=== PATIENT | male | born 1990 | race Caucasian/White ===

== ENCOUNTER 2020-08-23 09:22 | Emergency (ER) | payer MEDICAID, SELFPAY ==
[2020-08-23 09:30] VITALS: BP 135/91; PULSE 73; RESP 17; TEMP 36.8; O2SAT 99; BMI 35.9
--- NOTE | 2020-08-23 09:49 | HMH.EDUTC ---
[facility] [place] Disposition Clinical Impression: Exposure to COVID-19 virus Disposition: Home, Self-Care Condition on Discharge: Good Instructions: Preventing the Spread of Coronavirus Discharge Instructions Additional Instructions: *Monitor Temp, Over the counter Motrin or Tylenol as directed/as needed Tylenol every 4 hours and Motrin every 6 hours (as long as your family doctor has told you that you can take it) for fever or pain. and straight to ER if unable to lower temp less than 101.0 after medication given *Warm salt water gargles may help to soothe the throat *Throat Lozenges *Warm fluids like tea with honey may help to soothe the throat *Sleep elevated *Humidifier/Vaporizer Follow up IMMEDIATELY for new or worsening symptoms or no Noticeable improvement over the next 48-72 hours. 911 for difficulty breathing or swallowing You was tested for today for COVID19 your test result should be back in the next 24-48 hours, you may call to the [facility] tomorrow to see if your test results are back however could take up to 48 hours before results are back [phone] [facility] hours are 9am-9pm You was given a handout with instructions for Self Quarantine and Self isolation for while you wait on test results and what to do if they are positive If you are positive the Health Dept will be contacting you also Referrals: Ava Urias [Primary Care Provider] - Forms: Work/School Release Time of Disposition: 09:52 Medical Decision Making - Arnold Inquiry Pt receiving controlled substance: No Arnold was queried for this patient: No Vital Signs: 08/23/20 09:30 Temperature 98.2 F Temperature Source Oral Pulse Rate [Right Brachial] 73 Respiratory Rate 17 Blood Pressure [Right Arm] 135/91 H Blood Pressure Mean [Right Arm] 105 Blood Pressure Source [Right Arm] Automatic Cuff Blood Pressure Position [Right Arm] Sitting 02 Sat by Pulse Oximetry 99 Oxygen Delivery Method Room Air Orders (Tests/Meds): ORDERS Category Date Time Status Covid-19 Nasal PCR Sendout [facility] 08/23/20 09:30 Ordered [facility] [place] HPI - General Stated complaint: Covid exposure Time Seen by Provider: 08/23/20 09:49 Mode of Arrival: Ambulatory Source of Information: Patient Limitations: No Limitations Description of Symptoms (Recalled from Triage Doc. by RN): PATIENT EXPOSED TO COVID LAST WEEK. C/O LOSS OF SMELL/TASTE, BODY ACHES, NAUSEA, AND FATIGUE X 2 DAYS HEENT Symptoms (Recalled from RN notes): Yes Resp Symptoms (Recalled from RN notes): No Skin Symptoms (Recalled from RN notes): No MS Symptoms (Recalled from RN notes): Yes Functional Status (Recalled from RN notes): WNL - History of Present Illness Provider Complaint: Patient states that he was exposed to coworker last week that recently tested positive for COVID States that he has since started having body aches, chills, headache and loss his sense of taste and smell States that he is concerned that he may have COVID - Related Data Home Medications Medication Instructions Recorded Confirmed Atorvastatin Calcium [Lipitor 40mg 40 mg PO HS 08/23/20 08/23/20 Tab] Allergies Allergy/AdvReac Type Severity Reaction Status Date / Time loratadine [From CLARITIN] Allergy Mild ALLERGY Verified 08/22/18 14:46 WORSE venom-honey bee Allergy Mild Verified 08/22/18 14:46 [bee venom (honey bee)] azithromycin Allergy Verified 08/22/18 15:08 Bumble Bee Allergy Mild Uncoded 09/09/17 14:48 - Worker's Comp Is this a Worker's Comp case?: No [facility] History - Hepatitis A Screen Drug use history?: No High risk sexual behaviors?: No History of sexually transmitted infection?: No Currently employed?: No Childcare worker?: No Do you have indoor plumbing?: Yes Do you have electricity?: Yes Attestation statement:: This patient has been screened for Hepatitis A risk factors. I have reviewed the patient's past medical history: Yes Other Medical History: Reports: Other (radha
[2020-08-23 09:57] VITALS: BP 135/91; PULSE 73; RESP 17; TEMP 36.8; O2SAT 99
[2020-08-24 09:45] LABS: Covid-19 Nasal PCR Sendout Lex NOT DETECTED
== END 2020-08-23 10:00 | disposition home or self-care (01) ==
PROVIDERS: Emergency Provider Nurse Practitioner; PCP Nurse Practitioner Family
DX: Z20.828 Contact with and (suspected) exposure to other viral communicable diseases (principal); E78.5 Hyperlipidemia, unspecified; Z79.899 Other long term (current) drug therapy
CPT/HCPCS: 99201; U0004

== ENCOUNTER 2021-02-03 12:59 | Emergency (ER) | payer MEDICAID, SELFPAY ==
[2021-02-03 13:26] VITALS: BP 146/81; PULSE 84; RESP 20; TEMP 36.6; O2SAT 100; BMI 31.8
--- NOTE | 2021-02-03 13:57 | HMH.EDUTC ---
[facility] [place] Disposition Clinical Impression: Sinusitis Qualifiers: Sinusitis location: unspecified location Chronicity: unspecified Qualified Code(s): J32.9 - Chronic sinusitis, unspecified Disposition: Home, Self-Care Condition on Discharge: Good Instructions: Sinusitis, DI for Sinusitis, Sinus Headache Additional Instructions: *Monitor Temp, Over the counter Motrin or Tylenol as directed/as needed Tylenol every 4 hours and Motrin every 6 hours (as long as your family doctor has told you that you can take it) for fever or pain. and straight to ER if unable to lower temp less than 101.0 after medication given *Warm fluids like tea with honey may help to soothe the throat and help with nasal congestion *Sleep elevated *Humidifier/Vaporizer Take medication as prescribed *Flonase 2 sprays in each nostril daily but be aware that it may take 2-3 days before you notice improvement Follow up IMMEDIATELY for new or worsening symptoms or no Noticeable improvement over the next 48-72 hours. 911 for difficulty breathing or swallowing Prescriptions: Amoxicillin/Potassium Clav [Augmentin 875-125 Tablet] 1 tab PO Q12H 10 Days #20 tab Transmission Status: Pending to [facility] Fluticasone Propionate [Flonase 50mcg nasal spray 16gm] 1 spr NS DAILY #1 bottle Transmission Status: Pending to [facility] methylPREDNISolone [Medrol 4mg tab] 4 mg PO DIRECTED #21 tab Transmission Status: Pending to [facility] Referrals: Ava Urias [Primary Care Provider] - As needed Time of Disposition: 14:02 Medical Decision Making - Arnold Inquiry Pt receiving controlled substance: No Arnold was queried for this patient: No Vital Signs: 02/03/21 13:26 Temperature 97.8 F Temperature Source Oral Pulse Rate [Left] 84 Respiratory Rate 20 Blood Pressure [Right Arm] 146/81 H Blood Pressure Mean [Right Arm] 102 02 Sat by Pulse Oximetry 100 [facility] [place] HPI - General Stated complaint: allergy symptoms Time Seen by Provider: 02/03/21 13:57 Mode of Arrival: Ambulatory Source of Information: Patient Limitations: No Limitations Description of Symptoms (Recalled from Triage Doc. by RN): pt is having a stuffy nose and sinus pressure. pt thinks its allergies or possible a sinus infection HEENT Symptoms (Recalled from RN notes): Yes (sinus pressure and nasal drainage) Resp Symptoms (Recalled from RN notes): No Skin Symptoms (Recalled from RN notes): No MS Symptoms (Recalled from RN notes): No Functional Status (Recalled from RN notes): na - History of Present Illness Provider Complaint: Patient states that he has been having problems with his allergies for over a month now States that for the last week he has been having sinus pain and pressure and feeling like it is worse States that he also noticed his drainage from his nose went from clear to yellowish green and feeling pressure behind his eyes so he came in to get it checked - Related Data Home Medications Medication Instructions Recorded Confirmed Atorvastatin Calcium [Lipitor 40mg 40 mg PO HS 08/23/20 08/23/20 Tab] Previous Rx's Medication Instructions Recorded Amoxicillin/Potassium Clav 1 tab PO Q12H 10 Days #20 tab 02/03/21 [Augmentin 875-125 Tablet] Fluticasone Propionate [Flonase 1 spr NS DAILY #1 bottle 02/03/21 50mcg nasal spray 16gm] methylPREDNISolone [Medrol 4mg 4 mg PO DIRECTED #21 tab 02/03/21 tab] Allergies Allergy/AdvReac Type Severity Reaction Status Date / Time loratadine [From CLARITIN] Allergy Mild ALLERGY Verified 02/03/21 13:29 WORSE venom-honey bee Allergy Mild Verified 02/03/21 13:29 [bee venom (honey bee)] azithromycin Allergy Verified 02/03/21 13:29 Bumble Bee Allergy Mild Uncoded 09/09/17 14:48 - Worker's Comp Is this a Worker's Comp case?: No [facility] History - Hepatitis A Screen Drug use history?: No High risk sexual behaviors?: No History of sexually transmitted infection
[2021-02-03 14:04] VITALS: BP 139/85; PULSE 87; RESP 19; TEMP 36.6
== END 2021-02-03 14:06 | disposition home or self-care (01) ==
PROVIDERS: Emergency Provider Nurse Practitioner; PCP Nurse Practitioner Family
DX: J32.9 Chronic sinusitis, unspecified (principal)
CPT/HCPCS: 99202; G0463

== ENCOUNTER 2021-02-08 18:53 | Emergency (ER) | payer MEDICAID, SELFPAY ==
[2021-02-08 19:00] VITALS: BP 137/84; PULSE 67; RESP 16; TEMP 36.6; O2SAT 99; BMI 33.2
--- NOTE | 2021-02-08 19:33 | HMH.EDUTC ---
[facility] [place] Disposition Clinical Impression: Poison alyssa Disposition: Home, Self-Care Condition on Discharge: Good Instructions: DI for Poison Alyssa Allergy Additional Instructions: Over the counter Calamine Lotion to area may help to dry the rash Over the counter Benadryl may help with itching Return if needed Avoid poison alyssa if possible To help prevent poison alyssa rash do not take hot shower after working in the weeds and make sure to immediately throw clothes in the laundry Follow up with your Family Doctor if no improvement or any worsening of symptoms Referrals: Ava Urias [Primary Care Provider] - As needed Time of Disposition: 20:20 Medical Decision Making - Arnold Inquiry Pt receiving controlled substance: No Arnold was queried for this patient: No Vital Signs: 02/08/21 19:00 02/08/21 20:12 Temperature 97.9 F 97.9 F Temperature Source Oral Pulse Rate 67 Pulse Rate [Right Brachial] 67 Respiratory Rate 16 16 Blood Pressure 137/84 Blood Pressure [Right Arm] 137/84 Blood Pressure Mean [Right Arm] 101 Blood Pressure Source [Right Arm] Automatic Cuff Blood Pressure Position [Right Arm] Sitting 02 Sat by Pulse Oximetry 99 Oxygen Delivery Method Room Air Orders (Tests/Meds): ED MEDICATIONS Discontinued Medications Generic Name Dose Route Start Last Admin Trade Name Freq PRN Reason Stop Dose Admin Methylprednisolone Sodium Succinate 125 mg 02/08/21 19:45 02/08/21 20:00 Methylprednisolone Sod Succ 125mg Vial IM 02/08/21 19:46 125 mg ONCE ONE Administration [facility] [place] HPI - General Stated complaint: rash on arm Time Seen by Provider: 02/08/21 19:25 Mode of Arrival: Ambulatory Source of Information: Patient Limitations: No Limitations Description of Symptoms (Recalled from Triage Doc. by RN): PATIENT C/O POISON ALYSSA TO LEFT ARM HEENT Symptoms (Recalled from RN notes): No Resp Symptoms (Recalled from RN notes): No Skin Symptoms (Recalled from RN notes): Yes MS Symptoms (Recalled from RN notes): No Functional Status (Recalled from RN notes): WNL - History of Present Illness Provider Complaint: Patient states that he is allergic to Poison alyssa and he cut down a tree a couple days ago and he noticed he was starting to break out in rash on his left arm States that he is itching his arm and now concerned because he has had it close to his eyes in the past - Related Data Allergies Allergy/AdvReac Type Severity Reaction Status Date / Time loratadine [From CLARITIN] Allergy Mild ALLERGY Verified 02/03/21 13:29 WORSE venom-honey bee Allergy Mild Verified 02/03/21 13:29 [bee venom (honey bee)] azithromycin Allergy Verified 02/03/21 13:29 Bumble Bee Allergy Mild Uncoded 09/09/17 14:48 - Worker's Comp Is this a Worker's Comp case?: No [facility] History - Hepatitis A Screen Drug use history?: No High risk sexual behaviors?: No History of sexually transmitted infection?: No Currently employed?: No Childcare worker?: No Do you have indoor plumbing?: Yes Do you have electricity?: Yes Attestation statement:: This patient has been screened for Hepatitis A risk factors. I have reviewed the patient's past medical history: Yes Other Medical History: Reports: Other (seasonal allergies) Laterality Cases: Bilateral: Tonsillectomy - Social History Smoking Status: Never smoker Alcohol Intake: never Occupational Status: other Housing: house Family Hx:: Hypertension, Diabetes, Heart Attack Comment: anxiety ROS Obtained: Yes All systems reviewed & no additional complaints, Yes Systems reviewed as appropriate & no additional complaints - Constitutional Constitutional: Reports system reviewed and no additional complaints, except as docu - ENT Ears, Nose, Mouth, and Throat: Reports system reviewed and no additional complaints, except as docu - Cardiovascular Cardiovascular: Reports system reviewed and no additional complaints, except as docu - Respiratory Respiratory: R
[2021-02-08 20:12] VITALS: BP 137/84; PULSE 67; RESP 16; TEMP 36.6; O2SAT 99
== END 2021-02-08 20:20 | disposition home or self-care (01) ==
PROVIDERS: Emergency Provider Nurse Practitioner; PCP Nurse Practitioner Family
DX: L23.7 Allergic contact dermatitis due to plants, except food (principal)
CPT/HCPCS: 96372; 99202; G0463

== ENCOUNTER 2021-04-28 19:13 | Emergency (ER) | payer MEDICAID, SELFPAY ==
[2021-04-28 19:14] VITALS: BP 127/74; PULSE 71; RESP 21; TEMP 37.1; O2SAT 98; BMI 31.5
--- NOTE | 2021-04-28 19:39 | HMH.EDUTC ---
[facility] [place] Clinical Impression: Sinusitis Qualifiers: Sinusitis location: maxillary Chronicity: acute Recurrence: non-recurrent Qualified Code(s): J01.00 - Acute maxillary sinusitis, unspecified Disposition: Home, Self-Care Condition on Discharge: Good Instructions: DI for Sinusitis Additional Instructions: You have been tested for COVID19. Your results should be available tomorrow. Prescriptions: Amoxicillin [Amoxicillin 875MG Tab] 875 mg PO Q12H #20 tab Transmission Status: Pending to [facility] Referrals: Ava Urias [Primary Care Provider] - Time of Disposition: 19:45 Medical Decision Making - Arnold Inquiry Pt receiving controlled substance: No Vital Signs: 04/28/21 19:14 Temperature 98.7 F Temperature Source Oral Pulse Rate [Left Radial] 71 Respiratory Rate 21 Blood Pressure [Right Arm] 127/74 Blood Pressure Mean [Right Arm] 91 02 Sat by Pulse Oximetry 98 Oxygen Delivery Method Room Air [facility] [place] HPI - General Stated complaint: sinus infection Time Seen by Provider: 04/28/21 19:39 Mode of Arrival: Ambulatory Source of Information: Patient Limitations: No Limitations Description of Symptoms (Recalled from Triage Doc. by RN): c/o sinus drainage and yellow mucus for 2 days HEENT Symptoms (Recalled from RN notes): Yes Resp Symptoms (Recalled from RN notes): No Skin Symptoms (Recalled from RN notes): No MS Symptoms (Recalled from RN notes): No Functional Status (Recalled from RN notes): wnl - History of Present Illness Provider Complaint: Sinus congestion, yellow mucous X 2 days. No fever. Denies ear pain, sore throat, cough. No vomiting or diarrhea. No known exposure to COVID19. Onset (ago): day(s) (2) Relieving factors: none Exacerbating factors: none Associated symptoms: denies other symptoms Treatments prior to arrival: none - Related Data Previous Rx's Medication Instructions Recorded Amoxicillin [Amoxicillin 875MG 875 mg PO Q12H #20 tab 04/28/21 Tab] Allergies Allergy/AdvReac Type Severity Reaction Status Date / Time loratadine [From CLARITIN] Allergy Mild ALLERGY Verified 02/03/21 13:29 WORSE venom-honey bee Allergy Mild Verified 02/03/21 13:29 [bee venom (honey bee)] azithromycin Allergy Verified 02/03/21 13:29 Bumble Bee Allergy Mild Uncoded 09/09/17 14:48 - Worker's Comp Is this a Worker's Comp case?: No H History - Hepatitis A Screen Drug use history?: No High risk sexual behaviors?: No History of sexually transmitted infection?: No Currently employed?: No Childcare worker?: No Do you have indoor plumbing?: Yes Do you have electricity?: Yes Attestation statement:: This patient has been screened for Hepatitis A risk factors. I have reviewed the patient's past medical history: Yes Other Medical History: Reports: Other (seasonal allergies) Laterality Cases: Bilateral: Tonsillectomy - Social History Smoking Status: Never smoker Alcohol Intake: never Occupational Status: other Housing: house Family Hx:: Hypertension, Diabetes, Heart Attack Comment: anxiety ROS Obtained: Yes All systems reviewed & no additional complaints - Constitutional Constitutional: Reports headache(s), Reports malaise - ENT Ears, Nose, Mouth, and Throat: Reports sinus pain, Reports sinus pressure Physical Exam - General General appearance: alert, in no apparent distress - Head Head exam: normocephalic - Eye Eye exam: Present: PERRL - ENT ENT exam: Present: TM's normal bilaterally - Expanded ENT Exam Nose exam: Present: sinus tenderness Throat exam: Present: tonsillar erythema, tonsillomegaly - Neck Neck exam: Absent: lymphadenopathy - Chest Chest inspection: Present: normal inspection - Respiratory Respiratory exam: Present: normal lung sounds bilaterally - Cardiovascular Cardiovascular exam: Present: regular rate, normal rhythm - Neurological Exam Neurological exam: Present: alert, oriented X3 - P
[2021-04-28 19:58] VITALS: BP 127/74; PULSE 71; RESP 21; TEMP 37.1; O2SAT 98
== END 2021-04-28 19:58 | disposition home or self-care (01) ==
PROVIDERS: Emergency Provider Physician Assistant; PCP Nurse Practitioner Family
DX: J01.00 Acute maxillary sinusitis, unspecified (principal); Z20.822 Contact with and (suspected) exposure to COVID-19
CPT/HCPCS: 99202; G0463; U0003

== ENCOUNTER 2021-10-21 18:25 | Emergency (ER) | payer MEDICAID, SELFPAY ==
[2021-10-21 19:14] VITALS: BP 137/78; PULSE 81; RESP 16; TEMP 37.4; O2SAT 99; BMI 34.8
--- NOTE | 2021-10-21 19:30 | HMH.EDUTC ---
[facility] [place] Disposition Clinical Impression: Exposure to COVID-19 virus, Viral syndrome Disposition: Home, Self-Care Condition on Discharge: Good Instructions: Preventing the Spread of Coronavirus Discharge Instructions, DI for COVID-19 (Suspected or Confirmed ), DI for Viral Syndrome Additional Instructions: Drink plenty of fluids. Take tylenol or ibuprofen for pain or fever. Take the medications as directed. Follow up with your regular doctor. GO TO THE ER FOR ANY WORSENING SYMPTOMS Throw your tooth brush away and get a new one. Quarantine until you know the results of your covid-19 test. Notify your school or workplace of your results and follow their instructions regarding return to work/school. Don't start the oral steroids or the antibiotics unless you feel like you are getting a sinus infection. Prescriptions: Brompheniramine/Pseudoephed/Dm [Bromfed Dm Cough Syrup] 5 ml PO Q6HP PRN #240 ml PRN Reason: Cough [facility]: [facility] Amoxicillin/Potassium Clav [Augmentin 875-125 Tablet] 1 tab PO Q12H 10 Days #20 tab Transmission Status: [facility] methylPREDNISolone [Medrol] 4 mg PO DIRECTED 6 Days #21 packet [facility] Referrals: Ava Urias [Primary Care Provider] - Time of Disposition: 19:39 Medical Decision Making - Medical Records Medical records reviewed: No: I reviewed the patient's medical records. - Arnold Inquiry Pt receiving controlled substance: No Vital Signs: 10/21/21 19:14 Temperature 99.4 F Temperature Source Oral Pulse Rate [Left] 81 Respiratory Rate 16 Blood Pressure [Right Arm] 137/78 Blood Pressure Mean [Right Arm] 97 02 Sat by Pulse Oximetry 99 Orders (Tests/Meds): ORDERS Category Date Time Status Covid-19 Nasal PCR ([facility]) Routine Lab 10/21/21 19:07 Received [facility] [place] HPI - General Stated complaint: covid test/treated for symptoms Time Seen by Provider: 10/21/21 19:30 Mode of Arrival: Ambulatory Source of Information: Patient Limitations: No Limitations Description of Symptoms (Recalled from Triage Doc. by RN): pt c/o a RIVERA, body aches and chills. pt exposed to covid positive girlfriend. HEENT Symptoms (Recalled from RN notes): Yes (RIVERA) Resp Symptoms (Recalled from RN notes): No Skin Symptoms (Recalled from RN notes): No MS Symptoms (Recalled from RN notes): No Functional Status (Recalled from RN notes): wnl - History of Present Illness Provider Complaint: He states that his currently has covid-19. For the past 1 day he has felt kind of bad and had a headache. He denies any chest congestion or cough. He gets sinus infections frequently, so he is worried that he may be getting one. - Related Data Previous Rx's Medication Instructions Recorded Amoxicillin [Amoxicillin 875MG 875 mg PO Q12H #20 tab 04/28/21 Tab] Amoxicillin/Potassium Clav 1 tab PO Q12H 10 Days #20 tab 10/21/21 [Augmentin 875-125 Tablet] Brompheniramine/Pseudoephed/Dm 5 ml PO Q6HP PRN #240 ml 10/21/21 [Bromfed Dm Cough Syrup] methylPREDNISolone [Medrol] 4 mg PO DIRECTED 6 Days #21 10/21/21 packet Allergies Allergy/AdvReac Type Severity Reaction Status Date / Time loratadine [From CLARITIN] Allergy Mild ALLERGY Verified 02/03/21 13:29 WORSE venom-honey bee Allergy Mild Verified 02/03/21 13:29 [bee venom (honey bee)] azithromycin Allergy Verified 02/03/21 13:29 Bumble Bee Allergy Mild Uncoded 09/09/17 14:48 - Worker's Comp Is this a Worker's Comp case?: No [facility] History - Hepatitis A Screen Drug use history?: No High risk sexual behaviors?: No History of sexually transmitted infection?: No Currently employed?: No Childcare worker?: No Do you have indoor plumbing?: Yes Do you have electricity?: Yes Attestation statement:: This patient has been screened for Hepatitis A risk factors. I have reviewed the patient's past medical
[2021-10-21 19:46] VITALS: BP 137/78; PULSE 81; RESP 16; TEMP 37.4
== END 2021-10-21 19:46 | disposition home or self-care (01) ==
PROVIDERS: Emergency Provider Nurse Practitioner Family; PCP Nurse Practitioner Family
DX: U07.1 COVID-19 (principal); R51.9 Headache, unspecified
CPT/HCPCS: 99202; C9803; G0463; U0003; U0005

== ENCOUNTER 2022-02-13 18:38 | Emergency (ER) | payer MEDICAID, SELFPAY ==
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
[2022-02-13 18:59] VITALS: BP 144/81; PULSE 82; RESP 19; TEMP 36.5; O2SAT 99; BMI 34.7
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
[2022-02-13 19:30] VITALS: BP 144/81; PULSE 82; RESP 19; TEMP 36.5
== END 2022-02-13 19:39 | disposition home or self-care (01) ==
PROVIDERS: Emergency Provider Nurse Practitioner Family; PCP Nurse Practitioner Family
DX: S67.01XA Crushing injury of right thumb, initial encounter (principal); W22.8XXA Striking against or struck by other objects, initial encounter
CPT/HCPCS: 73130; 99212; G0463

== ENCOUNTER 2022-09-02 15:09 | Emergency (ER) | payer MEDICAID, OTHER, SELFPAY ==
--- NOTE | 2022-09-02 17:09 | EXP.UTC ---
Discharge Plan Disposition Patient Disposition: Home, Self-Care Condition: Good Prescriptions Prescriptions: New tptrnodewxyyjot-phcpajvab-VV [Bromfed DM] 2-30-10 mg/5 mL Syrup 5 ml PO Q6H PRN (Reason: Cough) Qty: 240 0RF amoxicillin [amoxicillin] 500 mg tablet 500 mg PO TID 10 Days Qty: 30 0RF methylprednisolone 4 mg Tablets,Dose Pack 4 mg PO DIRECTED Qty: 21 0RF oseltamivir [Tamiflu] 75 mg capsule 75 mg PO BID Qty: 10 0RF No Action amoxicillin 875 MG tablet 875 mg PO Q12H Qty: 20 0RF ibuprofen 800 MG tablet 800 mg PO Q8HP PRN (Reason: Moderate Pain) Qty: 30 0RF cephalexin 500 MG capsule 500 mg PO Q6H 10 Days Qty: 40 0RF methylprednisolone 4 MG tablets,dose pack 4 mg PO DIRECTED 6 Days Qty: 21 0RF amoxicillin-pot clavulanate 1 EACH tablet 1 tab PO Q12H 10 Days Qty: 20 0RF gbllvdswaoguakk-mwylvabis-IB 118 ML syrup 5 ml PO Q6HP PRN (Reason: Cough) Qty: 240 0RF Referrals Follow up/Referrals: Ava Urias [Primary Care Provider] - See instructions Activity Restrictions/Add. Instructions Additional Instructions/Restrictions: Drink plenty of fluids. Take tylenol or ibuprofen for pain or fever. Take the medications as directed. Follow up with your regular doctor. GO TO THE ER FOR ANY WORSENING SYMPTOMS Clinical Impressions Clinical Impression: Acute viral syndrome Stand Alone Forms Stand Alone Forms: Work/School Release Instructions Patient Instructions: DI for Influenza -- Adult, Oseltamivir Discharge ED Provider: Wing Brown [facility] General Stated complaint: h/a, body aches, chills Time Seen by Provider: 09/02/22 17:09 History of Present Illness Provider Complaint: He states that since early this morning he has had body aches, chills, scratchy sore throat, and a cough. He has body aches also. Related Data Previous Rx's Medication Instructions Recorded amoxicillin 875 mg tablet 875 mg PO Q12H #20 tabs 04/28/21 amoxicillin 875 mg-potassium 1 tab PO Q12H 10 days #20 tabs 10/21/21 clavulanate 125 mg tablet hxpwsaxqvgqngea-lkfejxrjygvrhci-KI 5 ml PO Q6HP PRN Cough #240 mL 10/21/21 2 mg-30 mg-10 mg/5 mL oral syrup methylprednisolone 4 mg tablets in 4 mg PO DIRECTED 6 days #21 10/21/21 a dose pack packets cephalexin 500 mg capsule 500 mg PO Q6H 10 days #40 caps 02/13/22 ibuprofen 800 mg tablet 800 mg PO Q8HP PRN Moderate Pain 02/13/22 #30 tabs amoxicillin 500 mg tablet 500 mg PO TID 10 days #30 tabs 09/02/22 iearseviekkwjfw-lhdjldrvqfzgfrs-YL 5 ml PO Q6H PRN Cough #240 mL 09/02/22 2 mg-30 mg-10 mg/5 mL oral syrup (Bromfed DM) methylprednisolone 4 mg tablets in 4 mg PO DIRECTED #21 tabs 09/02/22 a dose pack oseltamivir 75 mg capsule (Tamiflu) 75 mg PO BID #10 caps 09/02/22 Allergies Allergy/AdvReac Type Severity Reaction Status Date / Time loratadine [From CLARITIN] Allergy Mild ALLERGY Verified 09/02/22 17:27 WORSE venom-honey bee Allergy Mild Verified 09/02/22 17:27 [bee venom (honey bee)] azithromycin Allergy Verified 09/02/22 17:27 Bumble Bee Allergy Mild Uncoded 09/09/17 14:48 [facility] Disclaimer: The information contained in this section may have been updated after the patient was seen, as this information can be updated by other users. Social History Smoking Status: Never smoker second hand exposure: No alcohol intake: never current occupational status: other Travel in the last 8 weeks: None housing: house ROS Obtained: Yes All systems reviewed & no additional complaints except as documented Constitutional Constitutional: Reports chills and Reports fever(s) Eyes Eyes: Denies eye discharge ENT Ears, Nose, Mouth, and Throat: Reports as per HPI Cardiovascular Cardiovascular: Denies chest pain Respiratory Respiratory: Denies chest congestion and Reports cough Gastrointestinal Gastrointestingal: Reports na
[2022-09-02 17:22] VITALS: BP 155/93; PULSE 74; RESP 16; TEMP 36.9; O2SAT 98; BMI 32.9
[2022-09-02 17:27] LABS: Coronavirus 19, PCR Not Detected (NotDetected); Influenza A, PCR Not Detected (NotDetected); Influenza B, PCR Not Detected (NotDetected)
[2022-09-02 17:28] LABS: UTC Strep Screen (Rapid) Negative (Negative)
[2022-09-02 18:05] VITALS: BP 155/93; PULSE 74; RESP 16; TEMP 36.9
== END 2022-09-02 18:08 | disposition home or self-care (01) ==
PROVIDERS: Emergency Provider Nurse Practitioner Family; PCP Nurse Practitioner Family
DX: R51.9 Headache, unspecified (principal); R50.9 Fever, unspecified; R52 Pain, unspecified; B34.9 Viral infection, unspecified
CPT/HCPCS: 87880; 99212; C9803; G0463; U0003; U0005

== ENCOUNTER 2022-10-10 18:43 | Emergency (ER) | payer MEDICAID, SELFPAY ==
[2022-10-10 18:55] VITALS: BP 140/72; PULSE 56; RESP 17; O2SAT 99; BMI 33.5
--- NOTE | 2022-10-10 19:05 | EXP.UTC ---
Discharge Plan Disposition Patient Disposition: Home, Self-Care Condition: Good Prescriptions Prescriptions: New bacitracin-polymyxin B 500-10,000 unit/gram ointment 1 applic ophthalmic (eye) Q3H 7 Days Qty: 3.5 0RF ibuprofen [IBU] 800 mg tablet 800 mg PO Q8HP PRN (Reason: Moderate Pain) Qty: 30 0RF Referrals Follow up/Referrals: Ava Urias [Primary Care Provider] - See instructions Activity Restrictions/Add. Instructions Additional Instructions/Restrictions: Use the eye ointment as directed. Follow up with your regular doctor. You need to have your primary care provider to check your eyes again in 24 to 48 hours. GO TO THE ER FOR ANY WORSENING SYMPTOMS OR CONCERNS Clinical Impressions Clinical Impression: Photokeratitis Stand Alone Forms Stand Alone Forms: Work/School Release Instructions Patient Instructions: DI for Eye Flash Burn Discharge ED Provider: Wing Brown [facility] General Stated complaint: AO 10/09 welding adames both eyes Mode of Arrival: Ambulatory Limitations: No Limitations Time Seen by Provider: 10/10/22 19:05 Description of Symptoms (Recalled from Triage Doc. 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 REPORTS PAIN IS BETTER BUT BOTTOM EYE LIDS FEEL SWOLLEN History of Present Illness Provider Complaint: He states that he welded last night without eye protection. He has had bilateral eye irritation and burning since after doing that. He denies any possible foreign body. His tetanus immunization is up to date. Related Data Previous Rx's Medication Instructions Recorded bacitracin-polymyxin B 500 1 applic ophthalmic (eye) Q3H 7 10/10/22 unit-10,000 unit/gram eye ointment days #3.5 grams ibuprofen 800 mg tablet (IBU) 800 mg PO Q8HP PRN Moderate Pain 10/10/22 #30 tabs Allergies Allergy/AdvReac Type Severity Reaction Status Date / Time loratadine [From CLARITIN] Allergy Mild ALLERGY Verified 10/10/22 19:22 WORSE venom-honey bee Allergy Mild Verified 10/10/22 19:22 [bee venom (honey bee)] azithromycin Allergy Verified 10/10/22 19:22 Bumble Bee Allergy Mild Uncoded 09/09/17 14:48 [facility] Disclaimer: The information contained in this section may have been updated after the patient was seen, as this information can be updated by other users. Social History Smoking Status: Never smoker second hand exposure: No alcohol intake: never current occupational status: other Travel in the last 8 weeks: None housing: house ROS Obtained: Yes All systems reviewed & no additional complaints except as documented Constitutional Constitutional: Denies chills and Denies fever(s) Eyes Eyes: Reports as per HPI, Denies change in vision, Denies diplopia, Reports eye discharge, Denies dry eyes, Denies floaters, Reports irritation, Denies itchy eyes, Denies loss of peripheral vision, Denies loss of vision, Reports sensitivity to light and Reports photophobia ENT Ears, Nose, Mouth, and Throat: Denies dizziness, Denies otalgia and Denies sore throat Cardiovascular Cardiovascular: Denies chest pain Respiratory Respiratory: Denies shortness of breath, Denies chest congestion, Denies cough, Denies stridor and Denies wheezing Gastrointestinal Gastrointestingal: Denies nausea or vomiting Musculoskeletal Musculoskeletal: Reports system reviewed and no additional complaints, except as documented and Denies arthralgias Integumentary/Breasts Skin/Breast: Denies rash Neurologic Neurologic: Denies dizziness, Denies loss of vision and Denies paresthesias Allergic/Immunologic Allergic/Immunologic: Denies itchy eyes and Denies wheezing Physical Exam General General appearance: alert and in no apparent distress Head Head exam: atraumatic, normocephalic and normal inspection Eye Eye exam: Present PERRL and EOMI Expanded Eye Exam Eyelids: bilateral: erythema Pupils: Left: siz
[2022-10-10 19:10] VITALS: BP 116/74; PULSE 58; RESP 20; TEMP 36.6; O2SAT 98; BMI 32.3
[2022-10-10 20:12] VITALS: BP 116/74; PULSE 58; RESP 20; TEMP 36.6; O2SAT 98
== END 2022-10-10 20:12 | disposition home or self-care (01) ==
PROVIDERS: Emergency Provider Nurse Practitioner Family; PCP Nurse Practitioner Family
DX: H16.133 Photokeratitis, bilateral (principal); W89.0XXA Exposure to welding light (arc), initial encounter
CPT/HCPCS: 99212; 99213; G0463

== ENCOUNTER 2022-10-18 19:09 | Emergency (ER) | payer MEDICAID, SELFPAY ==
[2022-10-18 19:10] VITALS: BP 143/95; PULSE 80; RESP 20; TEMP 37.3; O2SAT 97; BMI 33.9
[2022-10-18 19:27] LABS: UTC Strep Screen (Rapid) Negative (Negative)
--- NOTE | 2022-10-18 19:28 | EXP.UTC ---
Discharge Plan Disposition Patient Disposition: Home, Self-Care Condition: Good Prescriptions Prescriptions: New prednisone [prednisone] 20 mg tablet 20 mg PO BID 5 Days Qty: 10 0RF pseudoephedrine HCl [12 Hour Decongestant] 120 mg Tablet Extended Release 120 mg PO Q12H Qty: 20 0RF amoxicillin-pot clavulanate 875-125 mg Tablet 1 tab PO Q12H Qty: 20 0RF Referrals Follow up/Referrals: Ava Urias [Primary Care Provider] - See instructions Activity Restrictions/Add. Instructions Additional Instructions/Restrictions: Take all meds as prescribed until gone Clinical Impressions Clinical Impression: Bilateral otitis media Instructions Patient Instructions: DI for Otitis Media (Middle Ear Infection)-Child Discharge ED Provider: Shauna Ramirez [facility] General Stated complaint: bilateral ear pain, sore throat, low grade fever Mode of Arrival: Ambulatory Source of Information: Patient Limitations: No Limitations Time Seen by Provider: 10/18/22 19:29 Description of Symptoms (Recalled from Triage Doc. by RN): sore throat, ear ache bilateral. HEENT Symptoms (Recalled from RN notes): Yes Resp Symptoms (Recalled from RN notes): No Skin Symptoms (Recalled from RN notes): No MS Symptoms (Recalled from RN notes): No Functional Status (Recalled from RN notes): n/a History of Present Illness Provider Complaint: Bilateral ear pain, sore throat, low-grade fever X 1 day. No vomiting or diarrhea. Related Data Previous Rx's Medication Instructions Recorded amoxicillin 875 mg-potassium 1 tab PO Q12H #20 tabs 10/18/22 clavulanate 125 mg tablet prednisone 20 mg tablet 20 mg PO BID 5 days #10 tabs 10/18/22 pseudoephedrine HCl 120 mg 120 mg PO Q12H #20 tabs 10/18/22 tablet,extended release (12 Hour Decongestant ER) Allergies Allergy/AdvReac Type Severity Reaction Status Date / Time loratadine [From CLARITIN] Allergy Mild ALLERGY Verified 10/18/22 19:25 WORSE venom-honey bee Allergy Mild Verified 10/18/22 19:25 [bee venom (honey bee)] azithromycin Allergy Verified 10/18/22 19:25 Bumble Bee Allergy Mild Uncoded 09/09/17 14:48 Worker's Comp Is this a Worker's Comp case?: No [facility] Disclaimer: The information contained in this section may have been updated after the patient was seen, as this information can be updated by other users. Social History Smoking Status: Never smoker second hand exposure: No alcohol intake: never current occupational status: other Travel in the last 8 weeks: None housing: house ROS Obtained: Yes All systems reviewed & no additional complaints except as documented ENT Ears, Nose, Mouth, and Throat: Reports otalgia and Reports sore throat Physical Exam General General appearance: alert and in no apparent distress Head Head exam: atraumatic, normocephalic and normal inspection Eye Eye exam: Present normal appearance, PERRL and EOMI ENT ENT exam: Present normal exam, normal oropharynx, mucous membranes moist and normal external ear exam Expanded ENT Exam TM/Canal exam: Bilateral TM: erythema, bulging and effusion Throat exam: Present other (PND) Neck Neck exam: Present normal inspection, full ROM and trachea midline; Absent meningismus or lymphadenopathy Chest Chest inspection: Present normal inspection and symmetric chest wall rise; Absent tenderness Respiratory Respiratory exam: Present normal lung sounds bilaterally; Absent respiratory distress Cardiovascular Cardiovascular exam: Present regular rate and normal rhythm; Absent JVD Abdominal Exam Abdominal exam: Present soft and normal bowel sounds; Absent distention, tenderness or guarding Extremities Exam Extremities exam: Present normal inspection, full ROM and normal capillary refill; Absent calf tenderness Back Exam Back exam: Present normal inspection; Absent tenderness Neurological Exam Neurological exam: Present alert
[2022-10-18 20:02] VITALS: BP 143/95; PULSE 80; RESP 20; TEMP 37.3; O2SAT 97
== END 2022-10-18 20:02 | disposition home or self-care (01) ==
PROVIDERS: Emergency Provider Physician Assistant; PCP Nurse Practitioner Family
DX: H66.90 Otitis media, unspecified, unspecified ear (principal)
CPT/HCPCS: 87880; 99212; 99213; G0463

== ENCOUNTER 2022-10-27 20:22 | Emergency (ER) | payer MEDICAID, SELFPAY ==
[2022-10-27 20:24] VITALS: BP 150/87; PULSE 96; RESP 16; TEMP 37.8; O2SAT 99; BMI 33.9
[2022-10-27 20:36] LABS: Influenza A, PCR Not Detected (NotDetected); Influenza B, PCR Not Detected (NotDetected)
--- NOTE | 2022-10-27 20:47 | HMH.EDURI ---
Discharge Plan Disposition Patient Disposition: Home, Self-Care Prescriptions Prescriptions: New benzonatate 100 mg capsule 100 mg PO TID PRN (Reason: cough) Qty: 20 0RF No Action prednisone [prednisone] 20 mg tablet 20 mg PO BID 5 Days Qty: 10 0RF pseudoephedrine HCl [12 Hour Decongestant] 120 mg Tablet Extended Release 120 mg PO Q12H Qty: 20 0RF amoxicillin-pot clavulanate 875-125 mg Tablet 1 tab PO Q12H Qty: 20 0RF Referrals Follow up/Referrals: Ava Urias [Primary Care Provider] - See instructions Clinical Impressions Clinical Impression: COVID-19 Stand Alone Forms Stand Alone Forms: Work/School Release Instructions Patient Instructions: DI for COVID-19 (Suspected or Confirmed ) Discharge ED Provider: Bob (ED)Kaleb URI/Sore Throat HPI General Chief Complaint: Upper Respiratory Infection Stated Complaint: Cough,bodyaches, tired, throat cratchy, low fever Time Seen by Provider: 10/27/22 20:47 Mode of Arrival: Ambulatory Source of Information: Patient, Spouse and Medical Record Limitations: No Limitations Description of Symptoms (Recalled from ER Triage Doc. by RN): pt c/o cough,scratchy throat, fever. 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 Complaint: fever and cough Onset (ago): day(s) Duration: intermittent Severity: moderate Able to tolerate fluids by mouth: Yes Associated symptoms: denies other symptoms Treatments prior to arrival: antibiotics Related Data Previous Rx's Medication Instructions Recorded amoxicillin 875 mg-potassium 1 tab PO Q12H #20 tabs 10/18/22 clavulanate 125 mg tablet prednisone 20 mg tablet 20 mg PO BID 5 days #10 tabs 10/18/22 pseudoephedrine HCl 120 mg 120 mg PO Q12H #20 tabs 10/18/22 tablet,extended release (12 Hour Decongestant ER) benzonatate 100 mg capsule 100 mg PO TID PRN cough #20 caps 10/27/22 Allergies Allergy/AdvReac Type Severity Reaction Status Date / Time loratadine [From CLARITIN] Allergy Mild ALLERGY Verified 10/18/22 19:25 WORSE venom-honey bee Allergy Mild Verified 10/18/22 19:25 [bee venom (honey bee)] azithromycin Allergy Verified 10/18/22 19:25 Bumble Bee Allergy Mild Uncoded 09/09/17 14:48 [facility] Disclaimer: The information contained in this section may have been updated after the patient was seen, as this information can be updated by other users. Social History Smoking Status: Never smoker second hand exposure: No alcohol intake: never current occupational status: other Travel in the last 8 weeks: None housing: house ROS Obtained: Yes All systems reviewed & no additional complaints except as documented Physical Exam General General appearance: alert Head Head exam: normocephalic Eye Eye exam: Present PERRL and EOMI ENT ENT exam: Present normal oropharynx, mucous membranes moist and TM's normal bilaterally Neck Neck exam: Present full ROM Respiratory Respiratory exam: Present normal lung sounds bilaterally; Absent respiratory distress Cardiovascular Cardiovascular exam: Present regular rate; Absent systolic murmur Abdominal Exam Abdominal exam: Present soft Extremities Exam Extremities exam: Present full ROM Neurological Exam Neurological exam: Present alert, oriented X3 and CN II-XII intact; Absent motor sensory deficit Psychiatric Psychiatric exam: Present normal affect Skin Skin exam: Absent rash Medical Decision Making Medical Records Medical records reviewed: Yes I reviewed the patient's medical records. Arnold Inquiry Pt receiving controlled substance: No Vital Signs: 10/27/22 20:24 10/27/22 21:07 Temperature 100.0 F H 98.9 F Temperature Source Oral Oral Pulse Rate 89 Pulse Rate [Right] 96 H Respiratory Rate 16 16 Blood Pressure 144/74 H Blood Pressure [Right Arm] 150/87 H Blood Pressure Mean [Right Arm] 108 02 Sat by Pulse Oxime
--- NOTE | 2022-10-27 20:49 | XR_ITS ---
PROCEDURE INFORMATION: Exam: XR Chest Exam date and time: 10/27/2022 8:48 PM Age: 31 years old Clinical indication: Cough; Additional info: Congestion TECHNIQUE: Imaging protocol: Radiologic exam of the chest. Views: 2 views. COMPARISON: CR CXR CHEST(2 VIEWS-NOT PORTABLE) 12/22/2015 5:58 AM FINDINGS: Lungs: Unremarkable. No consolidation. Pleural spaces: Unremarkable. No pleural effusion. No pneumothorax. Heart/Mediastinum: Unremarkable. No cardiomegaly. Bones/joints: Unremarkable. IMPRESSION: No acute findings.
[2022-10-27 20:59] LABS: Coronavirus 19, PCR Detected (NotDetected)
[2022-10-27 21:07] VITALS: BP 144/74; PULSE 89; RESP 16; TEMP 37.2; O2SAT 99
--- NOTE | 2022-10-27 21:17 | PC.NURSE ---
Dr. Rojas at [facility] updating pt on results
== END 2022-10-27 21:26 | disposition home or self-care (01) ==
PROVIDERS: Emergency Provider Emergency Medicine; PCP Nurse Practitioner Family
DX: U07.1 COVID-19 (principal); R50.9 Fever, unspecified
CPT/HCPCS: 71046; 99283; 99284; C9803; U0003; U0005

== ENCOUNTER 2022-10-31 14:01 | Emergency (ER) | payer MEDICAID, SELFPAY ==
[2022-10-31 14:25] VITALS: BP 118/84; PULSE 76; RESP 20; TEMP 37.3; O2SAT 98
--- NOTE | 2022-10-31 14:30 | XR_ITS ---
FINAL REPORT TECHNIQUE: Chest PA & Lateral CLINICAL HISTORY: cough/ Congestion Covid +on 10/27 COMPARISON: 10/27/2022 FINDINGS: 2 views of the chest were performed. There is mild cardiomegaly. The mediastinum is within normal limits. There is no acute cardiopulmonary process. There are chronic changes in both lungs. There are no pleural effusions. There is no pneumothorax. The bony thorax appears intact. IMPRESSION: No acute cardiopulmonary process. Reviewed, Interpreted and Dictated by Lit Garza MD Transcribed by Tamika Rausch Authenticated and [facility]
--- NOTE | 2022-10-31 14:30 | EXP.UTC ---
Discharge Plan Disposition Patient Disposition: Home, Self-Care Condition: Good Prescriptions Prescriptions: New pseudoephedrine-guaifenesin [Mucinex D] 60-600 mg tablet extended release 12 hr 1 tab PO Q12H PRN (Reason: cold symptoms) Qty: 20 0RF No Action prednisone [prednisone] 20 mg tablet 20 mg PO BID 5 Days Qty: 10 0RF pseudoephedrine HCl [12 Hour Decongestant] 120 mg Tablet Extended Release 120 mg PO Q12H Qty: 20 0RF amoxicillin-pot clavulanate 875-125 mg Tablet 1 tab PO Q12H Qty: 20 0RF benzonatate 100 mg capsule 100 mg PO TID PRN (Reason: cough) Qty: 20 0RF Referrals Follow up/Referrals: Ava Urias [Primary Care Provider] - See instructions Activity Restrictions/Add. Instructions Additional Instructions/Restrictions: *Monitor Temp, Over the counter Motrin or Tylenol as directed/as needed Tylenol every 4 hours and Motrin every 6 hours (as long as your family doctor has told you that you can take it) for fever or pain. and straight to ER if unable to lower temp less than 101.0 after medication given *Warm salt water gargles may help to soothe the throat *Throat Lozenges? *Warm fluids like tea with honey may help to soothe the throat? *Sleep elevated *Humidifier/Vaporizer Take Mucinex D as prescribed for cough and congestion Follow up IMMEDIATELY for new or worsening symptoms or no Noticeable improvement over the next 48-72 hours. 911 for difficulty breathing or swallowing Clinical Impressions Clinical Impression: COVID-19 Cough Qualifiers: Cough type: unspecified Qualified Code(s): R05.9 - Cough, unspecified Instructions Patient Instructions: Cough, DI for COVID-19 (Suspected or Confirmed ) Discharge ED Provider: Karoline Nuñez [facility] [place] General Stated complaint: Covid+ 2/5 Chest congestion headache cough Mode of Arrival: Ambulatory Source of Information: Patient Limitations: No Limitations Time Seen by Provider: 10/31/22 14:30 Description of Symptoms (Recalled from Triage Doc. by RN): c/o cough, chest congestion, migraine and sore ribs HEENT Symptoms (Recalled from RN notes): Yes Resp Symptoms (Recalled from RN notes): Yes Skin Symptoms (Recalled from RN notes): No MS Symptoms (Recalled from RN notes): No Functional Status (Recalled from RN notes): na History of Present Illness Provider Complaint: Patient states that he was dx with COVID on 2/ States that he has continued to have chest congestion and cough, body aches, headache and his ribs are sore from the coughing but not coughing anything up States that he did feel like he was wheezing earlier so today he came back in to get checked again Related Data Previous Rx's Medication Instructions Recorded amoxicillin 875 mg-potassium 1 tab PO Q12H #20 tabs 10/18/22 clavulanate 125 mg tablet prednisone 20 mg tablet 20 mg PO BID 5 days #10 tabs 10/18/22 pseudoephedrine HCl 120 mg 120 mg PO Q12H #20 tabs 10/18/22 tablet,extended release (12 Hour Decongestant ER) benzonatate 100 mg capsule 100 mg PO TID PRN cough #20 caps 10/27/22 pseudoephedrine-guaifenesin ER 60 1 tab PO Q12H PRN cold symptoms 10/31/22 mg-600 mg tablet,extend release #20 tabs 12hr (Mucinex D) Allergies Allergy/AdvReac Type Severity Reaction Status Date / Time loratadine [From CLARITIN] Allergy Mild ALLERGY Verified 10/18/22 19:25 WORSE venom-honey bee Allergy Mild Verified 10/18/22 19:25 [bee venom (honey bee)] azithromycin Allergy Verified 10/18/22 19:25 Bumble Bee Allergy Mild Uncoded 09/09/17 14:48 Worker's Comp Is this a Worker's Comp case?: No [facility] Disclaimer: The information contained in this section may have been updated after the patient was seen, as this information can be updated by other users. Social History Smoking Status: Never smoker second hand exposure: No alcohol intake: never current occupational status: other
[2022-10-31 15:26] VITALS: BP 118/86; PULSE 76; RESP 20; TEMP 37.3; O2SAT 98
== END 2022-10-31 15:34 | disposition home or self-care (01) ==
PROVIDERS: Emergency Provider Nurse Practitioner; PCP Nurse Practitioner Family
DX: U07.1 COVID-19 (principal); R05.9 Cough, unspecified; R09.89 Other specified symptoms and signs involving the circulatory and respiratory systems; R51.9 Headache, unspecified
CPT/HCPCS: 71046; 99212; 99213; G0463